=== PATIENT | female | born 2000 | race Caucasian/White ===

== ENCOUNTER 2023-05-22 01:58 | Emergency (ER) | payer SELFPAY ==
[2023-05-22] MEDS ORDERED: Ondansetron PF 4 MG/2 ML Vial ONE ×2 (02:26→02:33)
== END 2023-05-22 03:40 | disposition home or self-care (01) ==
LOC: ERS 01:58
DX: F10.129 Alcohol abuse with intoxication, unspecified (principal); F17.290 Nicotine dependence, other tobacco product, uncomplicated; Y90.9 Presence of alcohol in blood, level not specified
CPT/HCPCS: 96374; J2405